=== PATIENT | female | born 1945 | race Two or more races ===

== ENCOUNTER 2019-01-24 20:03 | Emergency (ER) | payer MEDICARE, OTHER ==
[~2019-01-24] VITALS: Ht 170.2 cm; Wt 72.6 kg
[2019-01-24 20:35] LABS: APPEARANCE,URINE Turbid (CLEAR); BILIRUBIN,URINE Negative (NEGATIVE); BLOOD, URINE Moderate Ery/uL (NEGATIVE); COLOR,URINE Orange (YELLOW); KETONES,URINE Negative (NEGATIVE); LEUKOCYTE ESTERASE ,URINE Large (NEGATIVE); NITRITE, URINE Positive (NEGATIVE); PROTEIN,URINE 30 mg/dl (NEGATIVE); UGLUCOSE 100 MG/DL mg/dL (NEGATIVE)
--- NOTE | 2019-01-24 20:38 | NUR ---
HALL MONITOR AT BEDSIDE FOR BLOOD DRAW.
[2019-01-24 20:52] LABS: BASOPHILS % (AUTO) 0.5 % (0.0-2.0); EOSINOPHILS % (AUTO) 2.4 % (0.0-6.0); HEMATOCRIT 36 % (33-45); HEMOGLOBIN 12.2 g/dL (11.5-14.8); LYMPHOCYTES # (AUTO) 1.6 /CMM (0.8-4.8); LYMPHOCYTES % (AUTO) 27.2 % (20.0-44.0); MEAN CORPUSCULAR HGB CONC 34 g/dl (31.0-36.0); MEAN CORPUSCULAR VOLUME 90 fL (82-100); MONOCYTES # (AUTO) 0.4 /CMM (0.1-1.30); MONOCYTES % (AUTO) 6.9 % (2.0-12.0); NEUTROPHILS # (AUTO) 3.7 /CMM (1.8-8.9); PLATELET COUNT (AUTO) 178 /CMM (150-450); RED BLOOD CELL COUNT(AUTO) 3.95 MIL/uL (4.0-5.2); WHITE BLOOD COUNT (AUTO) 5.9 K/uL (4.3-11.0)
[2019-01-24 20:57] LABS: RBC,URINE 21-50 /HPF (0-2); WBC,URINE 81-100 /HPF (0-3)
[2019-01-24 20:58] LABS: BACTERIA,URINE Few /HPF (None Seen); SQUAMOUS EPITHELIAL CELL,UR Few /HPF (None Seen); YEAST,URINE Few /HPF (None Seen)
[2019-01-24 21:15] LABS: CALCIUM, SERUM 8.6 mg/dL (8.5-10.1); CARBON DIOXIDE 29 mmol/L (21-32); CHLORIDE 106 mmol/L (98-107); CREATININE 0.8 mg/dL (0.6-1.3); GLUCOSE 95 mg/dL (74-106); POTASSIUM 4.1 mmol/L (3.5-5.1); SODIUM SERUM 142 mmol/L (136-145); UREA NITROGEN, BLOOD 12 mg/dL (7-18)
[2019-01-24] MEDS ORDERED: PHENAZOPYRIDINE HCL 200 MG TABLET ONE (21:26)
[2019-01-24] MEDS ORDERED: PHENAZOPYRIDINE HCL 200 MG TABLET PO ONE (21:30)
--- NOTE | 2019-01-24 21:43 | NUR ---
Patient discharged to home in stable condition. Written and verbal after care instructions given. Patient verbalizes understanding of instruction. ambulatory with a steady gait noted. pt [id number] no acute distress noted, resp even and unlabored. pt daughter at bedside to take pt home.
[2019-01-24 21:45] VITALS: BP 137/75
== END 2019-01-24 21:46 | disposition home or self-care (01) ==
LOC: ER 20:09
DX: N39.0 Urinary tract infection, site not specified (principal); R31.29 Other microscopic hematuria; I10 Essential (primary) hypertension
CPT/HCPCS: 36415; 80048-TC; 81000-TC; 85025-TC; 87086-TC; 87186-TC